=== PATIENT | male | born 1935 | race Caucasian/White ===

== ENCOUNTER 2016-05-07 22:12 | Inpatient (IN) | payer MEDICARE, OTHER ==
[~2016-05-07 22:12] MED LIST: ALEVE220 M3 PO; ANEXSIA 5/325 M1 TAB PO; ATACAND4 MG; B-1100 MG PO; B-121000 MCG PO; B-6 PO; CELEXA20 M2 PO; CLOBETASOL PROP50 M1 TOP; DECADRON4 MG PO; EXCEDRIN EXTRA1 EAC4 PO; FISH OIL1 CAP; HYDROCODON-ACE1 EA16 PO; LEXAPRO10 MG; MULTIVITAMINS1 EAC6 PO; OSTEO BI-FLEX1 EACH PO; OXYCONTIN40 MG; POTASSIUM PO; PREDNISONE20 M1 PO; PROTONIX; SEROQUEL100 MG PO; SEROQUEL50 MG; ULTRACET TABLET1 TAB PO; VALTREX1000 M1 PO; VITAMIN B-1250 MC1 PO; VITAMIN B-6100 M1 PO
[2016-05-07 22:47] LABS: URINE LEUKOCYTE ESTERASE NEGATIVE (NEG); URINE PROTEIN MODERATE (NEG)
[2016-05-07 22:48] LABS: URINE APPEARANCE HAZY; URINE BILIRUBIN NEGATIVE (NEG); URINE BLOOD SMALL (NEG); URINE COLOR YELLOW; URINE GLUCOSE (UA) SMALL (NEG); URINE KETONE NEGATIVE (NEG); URINE NITRITE NEGATIVE (NEG)
[2016-05-07 22:55] LABS: URINE WBC 0-1 /[HPF] (0-5)
[2016-05-07] MEDS ORDERED: NEOSPORIN OIN28.3 GM TP (22:55)
[2016-05-07] MEDS ORDERED: PERIDEX118 ML SSP (22:56)
[2016-05-07] MEDS ORDERED: IBUPROFEN600 M1 PO (22:56)
[2016-05-07] MEDS ORDERED: HYDROCODON-ACE1 EA17 PO (22:57)
[2016-05-07 23:37] LABS: ALBUMIN 3.3 g/dl (3.5-5.0); ALKALINE PHOSPHATASE 78 U/L (33-138); ALT/SGPT 16 U/L (12-78); ANION GAP 19 mmol/L (0-20); AST/SGOT 34 U/L (10-40); BILIRUBIN,TOTAL 1.1 mg/dl (0.0-1.5); BLOOD UREA NITROGEN 50 mg/dl (6-24); CALCIUM 9.4 mg/dl (8.5-10.5); CARBON DIOXIDE-VENOUS 21 mmol/L (22-32); CHLORIDE 104 mmol/l (96-110); CREATININE 2.35 mg/dl (0.60-1.30); GLUCOSE 112 mg/dL (70-110); SODIUM 138 mmol/L (135-145); eGFR VALUE FOR BLACK 29 mL/Min
[2016-05-07 23:38] LABS: POTASSIUM 5.5 mmol/L (3.7-5.1)
[2016-05-08 01:03] LABS: HCT-HEMATOCRIT 48.3 % (36.0-53.5); HGB-HEMOGLOBIN 14.6 gm/dl (13.5-17.0); MCH (MEAN CORPUSCULAR HGB) 21.5 pg (28.0-32.0); MCHC MEAN CORPUSCULAR HGB CONC 30.2 % (32.0-36.0); MEAN PLATELET VOLUME 10.7 cmc (9.4-12.4); RED CELL DISTRIBUTION WIDTH 21.6 % (12.4-16.4)
[2016-05-08 01:41] LABS: PLATELET COUNT 638 tho/cmm (150-450)
[2016-05-08 01:44] LABS: WHITE BLOOD COUNT 52.6 tho/cmm (4.0-10.0)
[2016-05-08 01:48] LABS: BAND % 22 % (0-20); BAND ABSOLUTE COUNT 11.6 tho/cmm (0-2.0)
[2016-05-08 01:49] LABS: PLATELET MORPHOLOGY MACRO
[2016-05-08 08:11] LABS: ABG CO2 ARTERIAL 20 mmol/L (21-27); ARTERIAL BLD GAS O2 SATURATION 96 % (95-98); ARTERIAL BLOOD GAS PCO2 34 mmHg (32-45); ARTERIAL PO2 81 mmHg (70-100); BICARBONATE 19 mmol/L (21-28); BLOOD GAS BASE EXCESS -5 mM/L (-/+3); PH 7.37 Units (7.35-7.45)
[2016-05-08 08:35] LABS: INR 1.8 INR (0.9-1.1); PROTHROMBIN TIME 20.9 SECONDS (9.0-13.6)
[2016-05-08 08:37] LABS: BASO % 0.2 % (0-2); BASO ABSOLUTE COUNT 0.1 tho/cmm (0.0-0.2); HCT-HEMATOCRIT 44.3 % (36.0-53.5); HGB-HEMOGLOBIN 13.3 gm/dl (13.5-17.0); IMMATURE GRANULOCYTES ABSOLUTE 2.18 tho/cmm (0-0.03); IMMATURE GRANULOCYTES PERCENT 3.4 % (0-0.3); LYMPH ABSOLUTE COUNT 2.5 tho/cmm (0.8-4.5); MCH (MEAN CORPUSCULAR HGB) 21.4 pg (28.0-32.0); MCV (MEAN CELL VOLUME) 71.3 fl (82.0-96.0); MEAN PLATELET VOLUME 10.8 cmc (9.4-12.4); MONO % 15.1 % (0-12); MONOCYTE ABSOLUTE COUNT 9.6 tho/cmm (0.0-1.2); NEUTROPHIL ABSOLUTE COUNT 49.2 tho/cmm (1.6-8.0); NEUTROPHIL-AUTOMATED 49.2 tho/cmm (1.6-8.0); NEUTROPHILS % 77.3 % (40-80); PLATELET COUNT 755 tho/cmm (150-450); RED BLOOD COUNT 6.21 mil/cmm (4.40-5.70); RED CELL DISTRIBUTION WIDTH 21.9 % (12.4-16.4); WHITE BLOOD COUNT 63.6 tho/cmm (4.0-10.0)
[2016-05-08 09:00] LABS: ALB/GLOB RATIO 0.9 (0.8-2.0); ALBUMIN 2.8 g/dl (3.5-5.0); ALKALINE PHOSPHATASE 59 U/L (33-138); ALT/SGPT 14 U/L (12-78); ANION GAP 15 mmol/L (0-20); AST/SGOT 12 U/L (10-40); BILIRUBIN,TOTAL 1.2 mg/dl (0.0-1.5); BLOOD UREA NITROGEN 49 mg/dl (6-24); CALCIUM 8.7 mg/dl (8.5-10.5); CARBON DIOXIDE-VENOUS 22 mmol/L (22-32); CHLORIDE 108 mmol/l (96-110); GLUCOSE 156 mg/dL (70-110); SODIUM 141 mmol/L (135-145); eGFR VALUE FOR BLACK 33 mL/Min
[2016-05-08 09:03] LABS: POTASSIUM 4.4 mmol/L (3.7-5.1)
[2016-05-08 09:15] LABS: C-REACTIVE PROTEIN 16.4 mg/dl (0-0.9); MAGNESIUM 1.6 mg/dl (1.3-2.6); PHOSPHOROUS 2.9 mg/dl (2.5-4.9)
[2016-05-08 09:17] LABS: PROCALCITONIN 12.46 ng/ml (0.05-0.09)
[2016-06-09] MEDS ORDERED: VITAMIN B-12250 MC2 PO (11:59)
[2016-06-09] MEDS ORDERED: MELATONIN3 M4 PO (11:59)
[2016-06-09] MEDS ORDERED: ALEVE220 M4 PO (12:21)
[2016-06-09] MEDS ORDERED: AUGMENTIN 875-1 EAC2 PO (12:23)
== END 2016-05-08 09:30 | disposition other institution (70) | DRG 871 ==
LOC: EDMED 22:12 → EMR2 05-08 04:11 → CCU 05-08 05:19
PROVIDERS: Emergency Medicine; Registered Nurse; ADMIT Hospitalist
PROC: 02HV33Z Insertion of Infusion Device into Superior Vena Cava, Percutaneous Approach (ICD-10-PCS; principal; 2016-05-08)
DX: A41.9 Sepsis, unspecified organism (principal); R65.21 Severe sepsis with septic shock; N17.9 Acute kidney failure, unspecified; D72.829 Elevated white blood cell count, unspecified; R09.02 Hypoxemia; C07 Malignant neoplasm of parotid gland
CPT/HCPCS: C1751; J2405; J2543; J3010; J3370; J7030; J7040; P9045

== ENCOUNTER 2016-06-13 05:38 | Day surgery (SDC) | payer MEDICARE, OTHER ==
[~2016-06-13 05:38] MED LIST changes: +ALEVE220 M4 PO; +AUGMENTIN 875-1 EAC2 PO; +HYDROCODON-ACE1 EA17 PO; +IBUPROFEN600 M1 PO; +MELATONIN3 M4 PO; +NEOSPORIN OIN28.3 GM TP; +PERIDEX118 ML SSP; +VITAMIN B-12250 MC2 PO
[2016-06-13 06:04] LABS: BASO % 0.4 % (0-2); EOS % 5.5 % (0-7); EOSINOPHIL ABSOLUTE COUNT 0.4 tho/cmm (0.0-0.7); HCT-HEMATOCRIT 49.1 % (36.0-53.5); HGB-HEMOGLOBIN 14.6 gm/dl (13.5-17.0); IMMATURE GRANULOCYTES ABSOLUTE 0.01 tho/cmm (0-0.03); IMMATURE GRANULOCYTES PERCENT 0.1 % (0-0.3); LYMPH % 14.6 % (20-45); LYMPH ABSOLUTE COUNT 1.1 tho/cmm (0.8-4.5); MCH (MEAN CORPUSCULAR HGB) 22.2 pg (28.0-32.0); MCHC MEAN CORPUSCULAR HGB CONC 29.7 % (32.0-36.0); MCV (MEAN CELL VOLUME) 74.7 fl (82.0-96.0); MEAN PLATELET VOLUME 10.1 cmc (9.4-12.4); MONO % 16.6 % (0-12); MONOCYTE ABSOLUTE COUNT 1.3 tho/cmm (0.0-1.2); NEUTROPHIL ABSOLUTE COUNT 4.8 tho/cmm (1.6-8.0); NEUTROPHIL-AUTOMATED 4.8 tho/cmm (1.6-8.0); NEUTROPHILS % 62.8 % (40-80); PLATELET COUNT 504 tho/cmm (150-450); RED BLOOD COUNT 6.57 mil/cmm (4.40-5.70); RED CELL DISTRIBUTION WIDTH 20.9 % (12.4-16.4); WHITE BLOOD COUNT 7.7 tho/cmm (4.0-10.0)
[2016-06-13 06:18] LABS: INR 1.2 INR (0.9-1.1); PROTHROMBIN TIME 13.7 SECONDS (9.0-13.6)
[2016-06-13 06:56] LABS: PLATELET MORPHOLOGY MACRO
== END 2016-06-13 12:00 ==
LOC: CTSCAN 05:38 → SHSC 05:40
PROVIDERS: Radiology Diagnostic Radiology
PROC: 0BBK3ZX Excision of Right Lung, Percutaneous Approach, Diagnostic (ICD-10-PCS; principal; 2016-06-13)
DX: C34.91 Malignant neoplasm of unspecified part of right bronchus or lung (principal); F41.9 Anxiety disorder, unspecified; G47.00 Insomnia, unspecified; Z87.891 Personal history of nicotine dependence; F32.9 Major depressive disorder, single episode, unspecified; K59.00 Constipation, unspecified
CPT/HCPCS: J3010; J7030